=== PATIENT | female | born 1995 | race Caucasian/White ===

== ENCOUNTER → 2018-02-18 16:45 | Outpatient (CLI) | payer OTHER, SELFPAY ==
[2018-02-23 13:34] LABS: HPV Reflexed? NOT INDICATED
== END ==
PROVIDERS: Referring Provider Obstetrics & Gynecology; Visit Provider Obstetrics & Gynecology
DX: Z12.4 Encounter for screening for malignant neoplasm of cervix (principal)
CPT/HCPCS: 88175; G0145

== ENCOUNTER → 2020-05-09 | Outpatient (CLI) | payer OTHER, SELFPAY ==
[2020-05-12 20:51] LABS: HPV Reflexed? NOT INDICATED
== END | disposition home or self-care (01) ==
LOC: LABSPEC 16:29
PROVIDERS: Visit Provider Student in an Organized Health Care Education/Training Program
DX: Z12.4 Encounter for screening for malignant neoplasm of cervix (principal)
CPT/HCPCS: 88175; G0145

== ENCOUNTER → 2020-09-14 16:39 | Outpatient (CLI) | payer OTHER, SELFPAY ==
[2020-09-14 19:11] LABS: Estradiol 51.4 pg/mL; Follicle Stimulating Hormone 5.3 mIU/mL; Luteinizing Hormone 9.4 mIU/mL; Prolactin 8.3 ng/mL; T4 Free Direct 0.88 ng/dL (0.76-1.46); Thyroid Stim Hormone (TSH) 1.68 uIU/mL (0.358-3.74)
== END ==
PROVIDERS: Visit Provider Student in an Organized Health Care Education/Training Program
DX: N91.1 Secondary amenorrhea (principal)
CPT/HCPCS: 36415; 82670; 83001; 83002; 84146; 84439; 84443

== ENCOUNTER → 2021-10-30 | Outpatient (CLI) | payer OTHER, SELFPAY ==
[2021-10-30 14:35] LABS: Progesterone Level 0.32 ng/mL (See Comment)
== END | disposition home or self-care (01) ==
LOC: WOBLAB 11:57
PROVIDERS: Visit Provider Student in an Organized Health Care Education/Training Program
DX: N97.9 Female infertility, unspecified (principal)
CPT/HCPCS: 36415; 84144

== ENCOUNTER → 2021-12-03 | Outpatient (CLI) | payer OTHER, SELFPAY ==
[2021-12-03 11:53] LABS: Progesterone Level 0.33 ng/mL (See Comment)
== END | disposition home or self-care (01) ==
LOC: WOBLAB 10:42
PROVIDERS: Visit Provider Student in an Organized Health Care Education/Training Program
DX: N97.2 Female infertility of uterine origin (principal)
CPT/HCPCS: 36415; 84144

== ENCOUNTER → 2022-01-08 | Outpatient (CLI) | payer OTHER, SELFPAY ==
[2022-01-08 17:04] LABS: Progesterone Level 19.82 ng/mL (See Comment)
== END | disposition home or self-care (01) ==
LOC: WOBLAB 15:25
PROVIDERS: Visit Provider Student in an Organized Health Care Education/Training Program
DX: N97.9 Female infertility, unspecified (principal)
CPT/HCPCS: 36415; 84144

== ENCOUNTER → 2022-01-24 | Outpatient (CLI) | payer OTHER, SELFPAY ==
--- NOTE | 2022-01-24 11:55 | RAD_ITS ---
STUDY: HYSTEROSALPINGOGRAM. REASON FOR EXAM: Female, 26 years old. INFERTILITY FLUOROSCOPY TIME (if supplied): ( 18 seconds ) minutes/seconds. One image was obtained. TECHNIQUE: A hysterosalpingogram was performed by the telecasting technician. Imaging was obtained. COMPARISON: None. FINDINGS: The uterus is unremarkable. Both fallopian tubes are patent with free spill. RAD/Salpingogram IMPRESSION: Unremarkable hysterosalpingogram. Electronically Signed: Harshal Puentes MD at 12:38 EDT ,
== END | disposition home or self-care (01) ==
LOC: RAD 11:35
PROVIDERS: PCP Internal Medicine; Referring Provider Student in an Organized Health Care Education/Training Program; Visit Provider Student in an Organized Health Care Education/Training Program
DX: N97.9 Female infertility, unspecified (principal)
CPT/HCPCS: 58340; 74740; Q9967

== ENCOUNTER → 2022-02-07 | Outpatient (CLI) | payer OTHER, SELFPAY ==
[2022-02-07 16:21] LABS: Progesterone Level 16.86 ng/mL (See Comment)
== END | disposition home or self-care (01) ==
LOC: WOBLAB 15:07
PROVIDERS: PCP Internal Medicine; Visit Provider Student in an Organized Health Care Education/Training Program
DX: N97.9 Female infertility, unspecified (principal)
CPT/HCPCS: 36415; 84144

== ENCOUNTER → 2022-03-11 | Outpatient (CLI) | payer OTHER, SELFPAY ==
[2022-03-11 17:24] LABS: Progesterone Level 20.53 ng/mL (See Comment)
== END | disposition home or self-care (01) ==
LOC: WOBLAB 16:39
PROVIDERS: PCP Internal Medicine; Visit Provider Student in an Organized Health Care Education/Training Program
DX: N97.9 Female infertility, unspecified (principal)
CPT/HCPCS: 36415; 84144

== ENCOUNTER → 2022-04-01 | Outpatient (CLI) | payer OTHER, SELFPAY ==
[2022-04-01 18:31] LABS: hCG Titer Quant., Serum 10299 mIU/mL (1-3)
== END | disposition home or self-care (01) ==
LOC: WOBLAB 16:21
PROVIDERS: PCP Internal Medicine; Visit Provider Student in an Organized Health Care Education/Training Program
DX: N91.2 Amenorrhea, unspecified (principal)
CPT/HCPCS: 36415; 84702

== ENCOUNTER → 2022-04-16 | Outpatient (CLI) | payer OTHER, SELFPAY ==
[2022-04-16 16:18] LABS: Protein, Urine (Random) < 6.0 mg/dL (<11.9); Protein:Creat Ratio 268 mg/g CRE (0-200)
[2022-04-16 16:24] LABS: Absolute Lymphocyte Count 1.79 X10^3/uL (0.83-4.51); Absolute Neutrophil Count 7.6 X10^3/uL (2.0-7.7); Basophil# 0.03 X10^3/uL; Basophil% 0.3 % (0-1); Eosinophil# 0.07 X10^3/uL; Eosinophils% 0.7 % (0-5); Hemoglobin 13.5 g/dL (12.0-15.0); Lymphocyte # 1.79 X10^3/ul (0.83-4.51); Lymphocyte % 17.8 % (19-41); Mean Corp Hgb Conc 32.9 g/dL (32-36); Mean Corpuscular Hgb 26.5 pg (27.0-32.0); Mean Corpuscular Volume 80.4 fL (81-99); Mean Platelet Vol. 9.4 fl (6.2-12.0); Monocyte# 0.51 X10^3/uL; Monocyte% 5.1 % (0-10); NRBC Flagged by Analyzer 0 % (0-5); Neutrophil # 7.62 X10^3/uL (2.7-7.7); Neutrophil % 75.6 % (47-70); Platelet Count 385 K/mm3 (150-450); RBC Distribution Width CV 15.1 % (11.6-14.6); RBC Distribution Width SD 44.1 fl (35.1-43.9); White Blood Count 10.1 K/mm3 (4.4-11.0)
[2022-04-16 17:10] LABS: ALB/GLOB Ratio 0.9 RATIO (0.9-2.4); AST(SGOT) 29 U/L (15-37); Alanine Aminotransfer ALT/SGPT 45 U/L (13-56); Albumin, Serum 3.7 g/dL (3.2-5.0); Alkaline Phosphatase 119 U/L (45-117); Anion Gap 7 (5-15); BUN 8 mg/dL (7-18); BUN/Creat Ratio 12.3 RATIO (10-20); Calcium,Total 9.5 mg/dL (8.5-10.1); Chloride 104 mmol/L (98-107); Creatinine, Serum 0.65 mg/dL (0.55-1.02); EST Glomerular Filtration Rate 115 mL/min (>60); Est Glom Filt Rate - Afr Amer 139 mL/min (>60); Globulin 4.3 g/dL (2.2-4.2); Glucose 93 mg/dL (74-106); LDH 136 U/L (84-246); Potassium 3.3 mmol/L (3.5-5.1); Sodium Level 138 mmol/L (136-145)
[2022-04-16 17:50] LABS: HIV - WCH Non-Reactive (Nonreactive); Hepatitis B Surface Antigen Non-Reactive (Nonreactive); Hepatitis C Antibody Non-Reactive (Nonreactive); Rubella IgG Reactive (Nonreactive); Syphilis Antibodies Non-reactive
[2022-04-18 16:36] LABS: V-Zoster IgG (Immunity) 262 index (Immune >165)
[2022-04-19 05:07] LABS: Chlamydia By Nucleic Acid AMP Negative (Negative)
[2022-04-19 17:04] LABS: Gonococcus By Nucleic Acid AMP Negative (Negative)
== END | disposition home or self-care (01) ==
LOC: WOBLAB 15:40
PROVIDERS: PCP Internal Medicine; Visit Provider Student in an Organized Health Care Education/Training Program
DX: Z34.81 Encounter for supervision of other normal pregnancy, first trimester (principal); Z11.3 Encounter for screening for infections with a predominantly sexual mode of transmission; I10 Essential (primary) hypertension
CPT/HCPCS: 36415; 80053; 82570; 83615; 84156; 85025; 86703; 86762; 86780; 86787; 86803; 87086; 87088; 87340; 87491; 87591

== ENCOUNTER → 2022-05-15 | Outpatient (CLI) | payer OTHER, SELFPAY ==
[2022-05-15 10:57] LABS: Glucose Challenge Gest 1H 50g 113 mg/dL (70-140)
== END | disposition home or self-care (01) ==
PROVIDERS: PCP Internal Medicine; Visit Provider Student in an Organized Health Care Education/Training Program
DX: Z34.81 Encounter for supervision of other normal pregnancy, first trimester (principal)
CPT/HCPCS: 36415; 82950

== ENCOUNTER → 2022-05-21 | Outpatient (CLI) | payer OTHER, SELFPAY ==
--- NOTE | 2022-05-21 07:52 | EKG12_ITS ---
Test Reason : CHECK Blood Pressure : / mmHG Vent. Rate : 096 BPM Atrial Rate : 096 BPM P-R Int : 122 ms QRS Dur : 086 ms QT Int : 374 ms P-R-T Axes : -17 -07 016 degrees QTc Int : 472 ms Normal sinus rhythm Normal ECG Confirmed by WIN SALAS, JEAN ([id number]), editor school photograph MATEO BAUMAN ([id number]) on 05/23/2022 10:08:48 AM Referred By: JORGE Confirmed By:JEAN WALDEN MD
== END | disposition home or self-care (01) ==
PROVIDERS: PCP Internal Medicine; Visit Provider Obstetrics & Gynecology
DX: I10 Essential (primary) hypertension (principal)
CPT/HCPCS: 93005

== ENCOUNTER → 2022-08-07 | Outpatient (CLI) | payer OTHER, SELFPAY ==
[2022-08-07 09:58] LABS: Absolute Lymphocyte Count 1.18 X10^3/uL (0.83-4.51); Absolute Neutrophil Count 7.4 X10^3/uL (2.0-7.7); Basophil# 0.03 X10^3/uL; Basophil% 0.3 % (0-1); Eosinophil# 0.05 X10^3/uL; Eosinophils% 0.6 % (0-5); Hematocrit 36.8 % (37-47); Hemoglobin 11.9 g/dL (12.0-15.0); Lymphocyte # 1.18 X10^3/ul (0.83-4.51); Lymphocyte % 13.1 % (19-41); Mean Corp Hgb Conc 32.3 g/dL (32-36); Mean Corpuscular Volume 83.4 fL (81-99); Mean Platelet Vol. 9.8 fl (6.2-12.0); Monocyte% 3.3 % (0-10); NRBC Flagged by Analyzer 0 % (0-5); Neutrophil # 7.35 X10^3/uL (2.7-7.7); Neutrophil % 81.6 % (47-70); Platelet Count 369 K/mm3 (150-450); RBC Distribution Width SD 45.7 fl (35.1-43.9); Red Blood Count 4.41 M/mm3 (4.2-5.4)
[2022-08-07 10:16] LABS: Glucose Challenge Gest 1H 50g 164 mg/dL (70-140)
[2022-08-07 10:39] LABS: Syphilis Antibodies Non-reactive
== END | disposition home or self-care (01) ==
LOC: WOBLAB 09:10
PROVIDERS: PCP Internal Medicine; Visit Provider Student in an Organized Health Care Education/Training Program
DX: Z34.82 Encounter for supervision of other normal pregnancy, second trimester (principal)
CPT/HCPCS: 36415; 82950; 85025; 86780

== ENCOUNTER → 2022-08-12 | Outpatient (CLI) | payer OTHER, SELFPAY ==
[2022-08-12 09:42] LABS: Glucose GTT-Gestation. Fasting 117 mg/dL (<105)
[2022-08-12 10:31] LABS: Glucose GTT-Gestational 1 Hr 233 mg/dL (<190)
[2022-08-12 11:22] LABS: Glucose GTT-Gestational 2 Hr 172 mg/dL (<165)
[2022-08-12 13:29] LABS: Glucose GTT-Gestational 3 Hr 101 L (<145)
== END | disposition home or self-care (01) ==
LOC: WOBLAB 08:47
PROVIDERS: PCP Internal Medicine; Visit Provider Student in an Organized Health Care Education/Training Program
DX: Z34.82 Encounter for supervision of other normal pregnancy, second trimester (principal)
CPT/HCPCS: 36415; 82951; 82952

== ENCOUNTER → 2022-10-28 | Outpatient (CLI) | payer OTHER, SELFPAY ==
[2022-10-28 15:19] LABS: Hematocrit 41.5 % (37-47); Hemoglobin 13.7 g/dL (12.0-15.0); Mean Corpuscular Hgb 27.1 pg (27.0-32.0); Mean Corpuscular Volume 82.2 fL (81-99); Mean Platelet Vol. 10.8 fl (6.2-12.0); Platelet Count 347 K/mm3 (150-450); RBC Distribution Width CV 15.7 % (11.6-14.6); RBC Distribution Width SD 47.1 fl (35.1-43.9); Red Blood Count 5.05 M/mm3 (4.2-5.4); White Blood Count 8.9 K/mm3 (4.4-11.0)
== END | disposition home or self-care (01) ==
LOC: WOBLAB 14:50
PROVIDERS: PCP Internal Medicine; Visit Provider Student in an Organized Health Care Education/Training Program
DX: Z34.83 Encounter for supervision of other normal pregnancy, third trimester (principal)
CPT/HCPCS: 36415; 85027; 87081

== ENCOUNTER 2022-11-25 07:00 | Inpatient (IN) | payer OTHER, SELFPAY ==
[2022-11-25] VITALS (67 sets, daily range): BP systolic 97–187; BP diastolic 50–107; PULSE 73–180; RESP 16–18; TEMP 36.1–37; O2SAT 78–99; BMI 42.1
--- NOTE | 2022-11-25 07:25 | HP.PCM.OB_ITS ---
History and Physical Date of Admission: 11/25/22 HPI: 27-year-old G1, P0 at 40/0 weeks, LINDSEY 11/25/2022 by LMP, admitted for induction of labor at term for chronic hypertension and GDM A2. Denies regular contractions, leaking fluid, vaginal bleeding. Reports movement. Denies headache or vision changes, chest pain or shortness of breath, nausea or vomiting, diarrhea constipation, fevers or chills. 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: G1: Current Medical history: Class I obesity, chronic hypertension on meds Surgical history: Denies Family history: Noncontributory Social history: Denies tobacco, alcohol, drug use Allergies: Denies Medications: Vitamin, aspirin 81 mg, Levemir 20 units at night, labetalol 200 mg every 12h Review of system: Negative otherwise stated above Physical exam: Vitals pending General: No acute distress resting comfortably in bed HEENT: Normal cephalic/atraumatic Cardiorespiratory: No increased effort Abdomen: Soft, nontender, Gravid Extremities: Minimal edema Neurologic: Cranial nerves II through XII grossly intact, no focal deficits Musculoskeletal: Moves all extremities Cervical exam: Pending heart rate: Pending Assessment/plan: 27-year-old G1, P0 at 40/0 weeks, LINDSEY 11/25/2022 by LMP, admitted for induction of labor at term for chronic hypertension and GDM A2. complicated by: Gestational diabetes mellitus type A2, chronic hypertension on medications. ?Admit for induction of labor with Cytotec. AROM when appropriate. ? Continue labetalol. ? GBS negative. ? Blood sugar testing per protocol, hold Levemir and labor
[2022-11-25] MEDS: 0.9% Saline Lock 10 ML Syringe IV (07:45)
[2022-11-25 08:14] LABS: Absolute Lymphocyte Count 1.75 X10^3/uL (0.83-4.51); Absolute Neutrophil Count 7.2 X10^3/uL (2.0-7.7); Basophil# 0.03 X10^3/uL; Basophil% 0.3 % (0-1); Eosinophil# 0.08 X10^3/uL; Eosinophils% 0.8 % (0-5); Hematocrit 40.6 % (37-47); Hemoglobin 13.4 g/dL (12.0-15.0); Lymphocyte # 1.75 X10^3/ul (0.83-4.51); Lymphocyte % 18.2 % (19-41); Mean Corpuscular Hgb 27.5 pg (27.0-32.0); Mean Corpuscular Volume 83.2 fL (81-99); Mean Platelet Vol. 11.3 fl (6.2-12.0); Monocyte# 0.49 X10^3/uL; Monocyte% 5.1 % (0-10); NRBC Flagged by Analyzer 0 % (0-5); Neutrophil # 7.19 X10^3/uL (2.7-7.7); Neutrophil % 74.9 % (47-70); Platelet Count 346 K/mm3 (150-450); RBC Distribution Width CV 16.5 % (11.6-14.6); RBC Distribution Width SD 49.6 fl (35.1-43.9); Red Blood Count 4.88 M/mm3 (4.2-5.4); White Blood Count 9.6 K/mm3 (4.4-11.0)
[2022-11-25 09:23] LABS: Syphilis Antibodies Non-reactive
[2022-11-25] MEDS: miSOPROStol 25 MCG TABLET VAGINAL ×2 (09:44→14:00)
[2022-11-25 10:12] LABS: Bedside Glucose 106 mg/dL (74-106)
[2022-11-25 10:12] LABS: Bedside Glucose 103 mg/dL (74-106)
[2022-11-25] MEDS: Lactated Ringers 1,000 ML 50 ML IV (10:21)
[2022-11-25] MEDS: LACTATED RINGERS 500 ML 999 ML IV ×2 (10:21→18:51)
[2022-11-25 12:54] LABS: Bedside Glucose 93 mg/dL (74-106)
--- NOTE | 2022-11-25 14:57 | PCM.PN.OB ---
Subjective Subjective Patient doing well. No issues or concerns. No headaches or vision changes, right upper quadrant pain Objective Data Objective Data Vital Signs: Vital Signs Temp Pulse BP Pulse Ox 98.1 F 93 162/92 H 95 11/25/22 14:50 11/25/22 14:50 11/25/22 14:50 11/25/22 14:49 Weight: 101.2 kg Body Mass Index (BMI) 42.1 Intake & Output: Intake and Output for Last 24 Hours 11/23/22 11/24/22 11/25/22 23:59 23:59 23:59 Intake Total 500 / 500 Balance 500 / 500 Lab / Micro Data Attestation: I reviewed the patient's lab results. 11/25/22 07:45 Labs: Laboratory Results - last 24 hr 11/25/22 07:45: WBC 9.6, RBC 4.88, Hgb 13.4, Hct 40.6, MCV 83.2, MCH 27.5, MCHC 33.0, RDW Std Deviation 49.6 H, RDW Coeff of Tere 16.5 H, Plt Count 346, MPV 11.3, Immature Gran % (Auto) 0.700, Neut % (Auto) 74.9 H, Lymph % (Auto) 18.2 L, [place] % (Auto) 5.1, Eos % (Auto) 0.8, Baso % (Auto) 0.3, Absolute Neuts (auto) 7.2, Absolute Lymphs (auto) 1.75, Nucleated RBC % 0, Syphilis Total Ab Non-reactive, Blood Type O POSITIVE, Antibody Screen NEGATIVE 11/25/22 08:27: POC Glucose 106 11/25/22 09:30: POC Glucose 103 11/25/22 12:34: POC Glucose 93 Physical Exam Const alert, oriented x3 and no apparent distress Resp normal respiratory effort GI soft to palpation and non-tender Inspection: gravid Extremity no pedal edema Neuro no focal motor deficits and no sensory deficits noted NST FHR Rate Baby A Baseline: 135 Variability:: Moderate Accelerations:: 15 x 15 Decelerations:: None FHR Category:: Category I Uterine Activity:: irregular Assessment & Plan (1) Gestational diabetes: PLAN: 27-year-old G1 at 40/0 weeks admitted for induction of labor for chronic hypertension on medications and GDM A2. Continue induction of labor with Cytotec. Patient one-time severe range blood pressure. Will give dose of labetalol at 5 PM tonight. Repeat blood pressure in 15 minutes. Reviewed possible treatment plan if blood pressures were persistently in the severe range. (2) Chronic hypertension:
[2022-11-25] MEDS: Labetalol (Prefilled) 20 MG/4 ML IV (15:25)
[2022-11-25] MEDS: Magnesium Sulfate 4gm/100mL 4 GM/100 ML IV.SOLN. IV (15:34)
[2022-11-25] MEDS: Magnesium Sulfate 4gm/100mL 2 GM/50 ML IV.SOLN. IV (15:52)
[2022-11-25] MEDS: Labetalol (Prefilled) 20 MG/4 ML 40 MG IV (16:06)
[2022-11-25] MEDS: Magnesium Sulfate 20 GM/500 ML BAG IV (16:13)
[2022-11-25 16:48] LABS: ALB/GLOB Ratio 0.5 RATIO (0.9-2.4); AST(SGOT) 26 U/L (15-37); Alanine Aminotransfer ALT/SGPT 44 U/L (13-56); Albumin, Serum 2.4 g/dL (3.2-5.0); Alkaline Phosphatase 245 U/L (45-117); Anion Gap 8 (5-15); BUN 12 mg/dL (7-18); BUN/Creat Ratio 22.9 RATIO (10-20); Calcium,Total 9.3 mg/dL (8.5-10.1); Chloride 106 mmol/L (98-107); Creatinine, Serum 0.52 mg/dL (0.55-1.02); EST Glomerular Filtration Rate 147 mL/min (>60); Est Glom Filt Rate - Afr Amer 177 mL/min (>60); Estimated Creatinine Clearance 120.46 ml/min; Globulin 4.6 g/dL (2.2-4.2); Glucose 89 mg/dL (74-106); Potassium 4.2 mmol/L (3.5-5.1); Sodium Level 135 mmol/L (136-145)
[2022-11-25 16:50] LABS: LDH 143 U/L (84-246)
[2022-11-25] MEDS: Labetalol 200 MG Tablet 300 MG PO (17:01)
[2022-11-25 17:12] LABS: Bedside Glucose 85 mg/dL (74-106)
[2022-11-25 18:11] LABS: Protein, Urine (Random) 134.7 mg/dL (<11.9); Protein:Creat Ratio 8980 mg/g CRE (0-200)
[2022-11-25] MEDS: Sodium Citrate/Citric Acid 30 ML UDC PO (20:06)
[2022-11-25] MEDS: Acetaminophen 500 MG Tablet PO (20:06)
[2022-11-25] MEDS: Cefazolin 2 GM in 0.9% Normal Saline 100 ML IV (20:15)
[2022-11-25 20:40] LABS: Bedside Glucose 115 mg/dL (74-106)
--- NOTE | 2022-11-25 21:29 | OP.PCM_ITS ---
Maternal Data Information Final LINDSEY: 11/25/22 Details Operative Information Date of Procedure: 11/25/22 Pre-Operative Diagnosis: Gould intrauterine , nonreassuring heart tones, chronic hypertension, gestational diabetes mellitus type A2 Post-Operative Diagnosis: Gould intrauterine , nonreassuring heart tones, chronic hypertension, gestational diabetes mellitus type A2 Indications Narrative: 27-year-old G1, P0 at 40/0 weeks admitted for induction of labor for chronic hypertension and GDM A2. Patient was diagnosed with superimposed preeclampsia with severe features during labor based on severe range blood pressures. She progressed through labor, had spontaneous rupture of membranes of meconium fluid. Developed nonreassuring heart tones, unresolved with supportive measures. Decision for section at that time was made. All risk, benefits, alternatives were discussed with the patient. Risk include but are not limited to: Risk of bleeding to the point of transfusion, infection, injury to surrounding tissue including bowel/bladder potentially requiring prolonged Stephenson catheter use, VTE, ICU admission. Patient aware and consented. Proceeding in an urgent, nonemergent fashion. Classification: MICHAEL Procedure Type: low transverse hose maker #1: Sheila Rose Type of Anesthesia: Spinal Antibiotic Given: Ancef 2 grams IV x1 and Zithromax 500 mg/5 mL X1 Estimated Blood Loss: 800cc Fluids Replaced: 1100cc IVF Findings Description of Procedure: Patient taken to the operating room and spinal anesthesia placed. Patient placed in the supine position with a left lateral tilt. Prepped and draped in the usual sterile fashion. Pfannenstiel skin incision made with scalpel and carried through subcutaneous tissue. Fascia nicked on either side of midline and extended bilaterally using Acosta scissors. Swati clamps placed at the superior fascial edge which was tented up and underlying rectus muscles were dissected off bluntly and sharply at midline using Bovie. Swati clamps moved to the inferior fascial edge which was tented up and underlying rectus muscles dissected off bluntly and sharply at midline using Acosta scissors. Small rectus muscle arteries coagulated with Bovie. Rectus muscles superiorly with hemostat and hemostat grasped peritoneum. Peritoneum entered bluntly. Extended bluntly. Bladder blade placed. Low transverse uterine incision made with scalpel and extended bluntly. The head noted to be in a occiput posterior position level in the pelvis. Attempted to elevate head to the level of the hysterotomy. Due to station being low and head position, a hand from below was needed to elevate the head. head elevated and head delivered followed by body. No nuchal cord. Cord clamped and cut immediately. Baby handed to nursing. Manual extraction of placenta. Uterus exteriorized and cleared of all clots. Hysterotomy closed with a running stitch followed by a second vertical imbricating stitch. Hemostatic. Placed into the abdominal cavity. Peritoneum reapproximated with suture. Oozing noted on the rectus muscles, hemostatic with Bovie and a [id number] stitch on the lateral aspect of the right rectus muscle. Brisa placed along the rectus muscles. Fascia closed with running stitch. Subcutaneous tissue irrigated. Subcutaneous tissue reapproximated with suture in 2 layers. Skin closed with a running subcuticular stitch. At the end of procedure all needle, lap, sponge counts were correct. Urine output: 50 cc clear urine, patient had just voided prior to surgery Plan for 24 hours of magnesium sulfate to continue. CBC, CMP, magnesium level in the morning. Continue Ancef 2 g every 8 hours for 24 hours prophylactically due to hand from below. Technology Development Intern did not feel the need for blood gases. Cord Entanglement: None Infant A Gender: Male (1 minute): 2 (5 minute): 9 Delayed Cord Clamping: No Complications Complications: None
[2022-11-25] MEDS: Oxytocin 15 Units/NS 250ml 15 UNITS/250 ML IV.SOLN 83 UNITS IV (21:45)
[2022-11-25] MEDS: Ketorolac 30 MG/ML Syringe IV (22:04)
[2022-11-26] VITALS (24 sets, daily range): BP systolic 88–140; BP diastolic 47–79; PULSE 97–116; RESP 15–18; TEMP 36.1–36.8; O2SAT 95–99
[2022-11-26] MEDS: Lactated Ringers 1,000 ML 50 ML IV (01:00)
[2022-11-26] MEDS: Magnesium Sulfate 20 GM/500 ML BAG IV ×2 (01:49→16:03)
[2022-11-26] MEDS: Acetaminophen 500 MG Tablet 1000 MG PO ×4 (02:26→22:03)
--- NOTE | 2022-11-26 03:40 | NURSING ---
Pt c/o feeling light headed and dizzy. Pt reports that she is hungry and has not went this long since having food before. Pt reports that she cannot tell when her blood sugar is low or high. Blood sugar taken at this time and it was 111. Pt requesting to eat at this time.
[2022-11-26 04:11] LABS: Bedside Glucose 111 mg/dL (74-106)
[2022-11-26] MEDS: Cefazolin 2 GM in 0.9% Normal Saline 100 ML IV ×3 (04:13→20:02)
[2022-11-26] MEDS: Ketorolac 30 MG/ML Syringe IV ×3 (04:14→16:09)
--- NOTE | 2022-11-26 04:50 | NURSING ---
Pt reports feeling better and not light headed or dizzy after eating a sandwich. This RN and another RN assisted pt to sit on the side of the bed. When pt sat on side of bed, pt reports feeling dizzy and light headed and requesting to get back into bed.
[2022-11-26 05:39] LABS: Hematocrit 27.9 % (37-47); Hemoglobin 8.9 g/dL (12.0-15.0); Mean Corp Hgb Conc 31.9 g/dL (32-36); Mean Corpuscular Hgb 27.2 pg (27.0-32.0); Mean Corpuscular Volume 85.3 fL (81-99); Platelet Count 368 K/mm3 (150-450); RBC Distribution Width SD 52.3 fl (35.1-43.9); Red Blood Count 3.27 M/mm3 (4.2-5.4); White Blood Count 16.7 K/mm3 (4.4-11.0)
--- NOTE | 2022-11-26 06:24 | CPS ---
Pt taught by SILVIA scales.
[2022-11-26 06:40] LABS: ALB/GLOB Ratio 0.5 RATIO (0.9-2.4); AST(SGOT) 32 U/L (15-37); Alanine Aminotransfer ALT/SGPT 39 U/L (13-56); Albumin, Serum 1.8 g/dL (3.2-5.0); Alkaline Phosphatase 188 U/L (45-117); Anion Gap 9 (5-15); BUN 19 mg/dL (7-18); BUN/Creat Ratio 23.9 RATIO (10-20); Calcium,Total 7.5 mg/dL (8.5-10.1); Chloride 106 mmol/L (98-107); Creatinine, Serum 0.79 mg/dL (0.55-1.02); EST Glomerular Filtration Rate 91 mL/min (>60); Est Glom Filt Rate - Afr Amer 110 mL/min (>60); Estimated Creatinine Clearance 79.29 ml/min; Globulin 3.4 g/dL (2.2-4.2); Glucose 111 mg/dL (74-106); Magnesium 7.4 mg/dL (1.6-2.6); Potassium 4.6 mmol/L (3.5-5.1); Protein, Total 5.2 g/dL (6.4-8.2); Sodium Level 135 mmol/L (136-145)
[2022-11-26] MEDS: LACTATED RINGERS 500 ML 999 ML IV (07:00)
--- NOTE | 2022-11-26 08:18 | PCM.PN.OB ---
Subjective Subjective Lochia minimal. Pain controlled. Feeling some lightheadedness. Denies headache or vision changes, right upper quadrant pain, chest pain or shortness of breath. Objective Data Objective Data Vital Signs: Vital Signs Temp Pulse Resp BP Pulse Ox O2 Del Method O2 Flow Rate 97.8 F 108 H 16 111/67 95 Room Air 10 11/26/22 07:04 11/26/22 07:04 11/26/22 07:04 11/26/22 07:04 11/26/22 07:04 11/26/22 07:04 11/25/22 19:45 Oxygen Flow Rate (L/min) 10 Oxygen Delivery Method Room Air Weight: 101.2 kg Body Mass Index (BMI) 42.1 Intake & Output: Intake and Output for Last 24 Hours 11/24/22 11/25/22 11/26/22 23:59 23:59 23:59 Intake Total 1963.58 / 1988.58 1474.17 / 1474.17 Output Total 1525 / 1570 1170 / 1170 Balance 438.58 / 418.58 304.17 / 304.17 Lab / Micro Data Attestation: I reviewed the patient's lab results. 11/26/22 05:30 11/26/22 05:30 Labs: Laboratory Results - last 24 hr 11/25/22 07:45: Syphilis Total Ab Non-reactive, Blood Type O POSITIVE, Antibody Screen NEGATIVE 11/25/22 08:27: POC Glucose 106 11/25/22 09:30: POC Glucose 103 11/25/22 12:34: POC Glucose 93 11/25/22 15:50: Sodium 135 L, Potassium 4.2, Chloride 106, Carbon Dioxide 21.0, Anion Gap 8, BUN 12, Creatinine 0.52 L, Estim Creat Clear Calc 120.46, Est GFR (MDRD) Af Amer 177, Est GFR (MDRD) Non-Af 147, BUN/Creatinine Ratio 22.9 H, Glucose 89, Calcium 9.3, Total Bilirubin 0.30, AST 26, ALT 44, Alkaline Phosphatase 245 H, Lactate Dehydrogenase 143, Total Protein 7.0, Albumin 2.4 L, Globulin 4.6 H, Albumin/Globulin Ratio 0.5 L 11/25/22 16:36: POC Glucose 85 11/25/22 17:10: U Random Total Protein 134.7 H, Urine Creatinine 15.00, Protein/Creatinin Ratio 8980 H 11/25/22 19:35: Magnesium 5.0 H 11/25/22 19:53: POC Glucose 115 H 11/26/22 03:48: POC Glucose 111 H 11/26/22 05:30: WBC 16.7 H, RBC 3.27 L, Hgb 8.9 L, Hct 27.9 L, MCV 85.3, MCH 27.2, MCHC 31.9 L, RDW Std Deviation 52.3 H, RDW Coeff of Tere 17.0 H, Plt Count 368, MPV 11.0, Sodium 135 L, Potassium 4.6, Chloride 106, Carbon Dioxide 20.0 L, Anion Gap 9, BUN 19 H, Creatinine 0.79, Estim Creat Clear Calc 79.29, Est GFR (MDRD) Af Amer 110, Est GFR (MDRD) Non-Af 91, BUN/Creatinine Ratio 23.9 H, Glucose 111 H, Calcium 7.5 L, Magnesium 7.4 H*, Total Bilirubin 0.30, AST 32, ALT 39, Alkaline Phosphatase 188 H, Total Protein 5.2 L, Albumin 1.8 L, Globulin 3.4, Albumin/Globulin Ratio 0.5 L Physical Exam Const alert, oriented x3 and no apparent distress HEENT normocephalic Head and Scalp: atraumatic Neck full ROM Resp normal respiratory effort Cardio regular rate GI normal to inspection, nondistended, normoactive bowel sounds GI Narrative: Uterus 2 cm below umbilicus, dressing clean and dry Back/Spine normal ROM Extremity normal to inspection Extremity Narrative: Minimal pedal edema Neuro no focal motor deficits and no sensory deficits noted Psych mental status grossly normal and affect normal Assessment & Plan (1) Chronic hypertension with superimposed pre-eclampsia: PLAN: Postop day 1 status post primary section for nonreassuring heart tones. Complicated by: GDMA2, superimposed preeclampsia with severe features, acute blood loss anemia secondary to surgery. ?GDMA2: Nonfasting blood sugar this morning within normal limits, will repeat tomorrow. Will need 2-hour glucose tolerance test 6 to 12 weeks . ? Acute blood loss anemia secondary to surgery. Will repeat CBC tomorrow, iron supplement on home-going. ?Superimposed preeclampsia with severe features. Magnesium level 7.4 this morning, magnesium drip decreased to 1 g/h. With a plan to repeat magnesium level 4 hours from last draw. Mag to be continued until this evening at 2039. Blood pressure is well-controlled at this time, lower end of normal. Patient having some lightheadedness and dizziness likely secondary to magnesium and blood pressures being lower. Will continue to hold her home labetalol dose of 300 mg twice daily. Patient also received 500 cc LR bolus this morning. Discharge plan: Likely discharge home postop day 3. Plan of care reviewed with bedside RN, patient, partner. All questions answered. (2) Other acute postprocedural pain: (3) Gestational diabetes:
[2022-11-26] MEDS: Senna/Docusate Sodium 1 Tablet PO (09:35)
[2022-11-26] MEDS: Enoxaparin 40 MG/0.4 ML Syringe SC ×2 (09:35→20:47)
[2022-11-26 09:58] LABS: Magnesium 6.8 mg/dL (1.6-2.6)
[2022-11-26 17:24] LABS: Magnesium 5.8 mg/dL (1.6-2.6)
[2022-11-26] MEDS: Labetalol 200 MG Tablet PO (20:47)
[2022-11-26] MEDS: Ibuprofen 600 MG Tablet PO (22:03)
[2022-11-26 23:50] LABS: Hematocrit 19.1 % (37-47); Hemoglobin 6.4 g/dL (12.0-15.0); Mean Corp Hgb Conc 33.5 g/dL (32-36); Mean Corpuscular Hgb 28.4 pg (27.0-32.0); Mean Corpuscular Volume 84.9 fL (81-99); Mean Platelet Vol. 10.7 fl (6.2-12.0); Platelet Count 294 K/mm3 (150-450); RBC Distribution Width CV 17.2 % (11.6-14.6); RBC Distribution Width SD 53.4 fl (35.1-43.9); Red Blood Count 2.25 M/mm3 (4.2-5.4); White Blood Count 10.5 K/mm3 (4.4-11.0)
[2022-11-27] VITALS (11 sets, daily range): BP systolic 118–152; BP diastolic 56–76; PULSE 88–113; RESP 14–21; TEMP 36.1–37.2; O2SAT 94–97
[2022-11-27 00:20] LABS: ALB/GLOB Ratio 0.5 RATIO (0.9-2.4); AST(SGOT) 28 U/L (15-37); Alanine Aminotransfer ALT/SGPT 28 U/L (13-56); Albumin, Serum 1.9 g/dL (3.2-5.0); Alkaline Phosphatase 192 U/L (45-117); Anion Gap 10 (5-15); BUN 27 mg/dL (7-18); BUN/Creat Ratio 27.9 RATIO (10-20); Chloride 100 mmol/L (98-107); Creatinine, Serum 0.97 mg/dL (0.55-1.02); EST Glomerular Filtration Rate 72 mL/min (>60); Est Glom Filt Rate - Afr Amer 87 mL/min (>60); Estimated Creatinine Clearance 64.58 ml/min; Globulin 3.6 g/dL (2.2-4.2); Glucose 150 mg/dL (74-106); Potassium 4.4 mmol/L (3.5-5.1); Protein, Total 5.5 g/dL (6.4-8.2); Sodium Level 130 mmol/L (136-145)
[2022-11-27] MEDS: Acetaminophen 500 MG Tablet 1000 MG PO ×4 (04:10→22:11)
[2022-11-27] MEDS: Ibuprofen 600 MG Tablet PO ×4 (04:10→22:11)
[2022-11-27] MEDS: oxyCODONE 5 MG Tablet PO ×2 (05:17→11:51)
--- NOTE | 2022-11-27 06:40 | PN.OBGYN_ITS ---
Subjective Subjective Patient up to chair. Feeling better than yesterday. Denies any current dizziness. Desires getting up out of bed. Lochia minimal. Pain controlled. No headache or vision changes. Objective Data Objective Data Vital Signs: Vital Signs Temp Pulse Resp BP Pulse Ox O2 Del Method O2 Flow Rate 97.0 F L 88 16 125/66 H 95 Room Air 10 11/27/22 06:20 11/27/22 06:20 11/27/22 06:20 11/27/22 06:20 11/27/22 06:20 11/27/22 06:20 11/25/22 19:45 Oxygen Flow Rate (L/min) 10 Oxygen Delivery Method Room Air Weight: 101.2 kg Body Mass Index (BMI) 42.1 Intake & Output: Intake and Output for Last 24 Hours 11/25/22 11/26/22 11/27/22 23:59 23:59 23:59 Intake Total 1963.58 / 1988.58 4544.17 / 4544.17 800 / 800 Output Total 1525 / 1570 1840 / 1840 2550 / 2550 Balance 438.58 / 418.58 2704.17 / 2704.17 -1750 / -1750 Lab / Micro Data Attestation: I reviewed the patient's lab results. 11/26/22 23:40 11/26/22 23:40 Labs: Laboratory Results - last 24 hr 11/25/22 07:45: Crossmatch See Detail 11/26/22 05:30: Sodium 135 L, Potassium 4.6, Chloride 106, Carbon Dioxide 20.0 L , Anion Gap 9, BUN 19 H, Creatinine 0.79, Estim Creat Clear Calc 79.29, Est GFR (MDRD) Af Amer 110, Est GFR (MDRD) Non-Af 91, BUN/Creatinine Ratio 23.9 H, Glucose 111 H, Calcium 7.5 L, Magnesium 7.4 H*, Total Bilirubin 0.30, AST 32, ALT 39, Alkaline Phosphatase 188 H, Total Protein 5.2 L, Albumin 1.8 L, Globulin 3.4, Albumin/Globulin Ratio 0.5 L 11/26/22 09:00: Magnesium 6.8 H* 11/26/22 16:10: Magnesium 5.8 H* 11/26/22 23:40: WBC 10.5, RBC 2.25 L, Hgb 6.4 L, Hct 19.1 L, MCV 84.9, MCH 28.4, MCHC 33.5 D, RDW Std Deviation 53.4 H, RDW Coeff of Tere 17.2 H, Plt Count 294, MPV 10.7, Sodium 130 L, Potassium 4.4, Chloride 100, Carbon Dioxide 20.0 L, Anion Gap 10, BUN 27 H, Creatinine 0.97, Estim Creat Clear Calc 64.58, Est GFR (MDRD) Af Amer 87, Est GFR (MDRD) Non-Af 72, BUN/Creatinine Ratio 27.9 H, Glucose 150 H, Calcium 7.0 L, Total Bilirubin 0.20, AST 28, ALT 28, Alkaline Phosphatase 192 H, Total Protein 5.5 L, Albumin 1.9 L, Globulin 3.6, Albumin/Globulin Ratio 0.5 L Physical Exam Const alert, oriented x3 and no apparent distress HEENT normocephalic Head and Scalp: atraumatic Neck full ROM Resp normal respiratory effort Cardio regular rate GI normal to inspection, nondistended, normoactive bowel sounds GI Narrative: Uterus 2 cm below umbilicus, dressing clean and dry Back/Spine normal ROM Extremity normal to inspection Extremity Narrative: Minimal pedal edema Neuro no focal motor deficits and no sensory deficits noted Psych mental status grossly normal and affect normal Assessment & Plan (1) Chronic hypertension with superimposed pre-eclampsia: PLAN: Postop day 2 status post primary section for nonreassuring heart tones. Complicated by GDMA2, superimposed preeclampsia with severe features, acute blood loss anemia. ?GDMA2: Fasting within normal limits. ? Alberto with severe features: Status post magnesium sulfate for 24 hours. Blood pressure is well-controlled. Blood pressure became slightly higher with a lower magnesium rate, patient was given labetalol 200 mg last evening. Will continue to monitor. Has labetalol ordered 200 mg every 12 hours. Labs tomorrow ?Acute blood loss anemia secondary to surgery. CBC done last evening with a hemoglobin of 6.4. Patient received 2 units of PRBCs. She has a CBC pending for around noon today. May need additional blood products. Patient's abdomen is soft and minimally tender, lochia has been minimal. No signs of continued bleeding at this time. Labs to be repeated tomorrow morning as well. Discharge planning: Patient to be discharged home on Lovenox 40 mg twice daily, at this time plan for home-going tomorrow postop day 3. Will depend on need for additional blood products and blood pressure management. (2) Other acute postprocedural pain: (3) Gestational diabetes:
[2022-11-27] MEDS: Senna/Docusate Sodium 1 Tablet PO (09:53)
[2022-11-27] MEDS: Enoxaparin 40 MG/0.4 ML Syringe SC ×2 (09:53→21:07)
[2022-11-27] MEDS: Labetalol 200 MG Tablet PO (09:53)
[2022-11-27 12:18] LABS: Absolute Lymphocyte Count 1.32 X10^3/uL (0.83-4.51); Absolute Neutrophil Count 8.7 X10^3/uL (2.0-7.7); Basophil# 0.02 X10^3/uL; Basophil% 0.2 % (0-1); Eosinophil# 0.04 X10^3/uL; Eosinophils% 0.4 % (0-5); Hematocrit 22.6 % (37-47); Lymphocyte # 1.32 X10^3/ul (0.83-4.51); Lymphocyte % 12.1 % (19-41); Mean Corp Hgb Conc 35.4 g/dL (32-36); Mean Corpuscular Hgb 29.4 pg (27.0-32.0); Mean Corpuscular Volume 83.1 fL (81-99); Monocyte# 0.61 X10^3/uL; Monocyte% 5.6 % (0-10); NRBC Flagged by Analyzer 0 % (0-5); Neutrophil # 8.66 X10^3/uL (2.7-7.7); Neutrophil % 79.7 % (47-70); Platelet Count 289 K/mm3 (150-450); RBC Distribution Width CV 16.6 % (11.6-14.6); RBC Distribution Width SD 49.7 fl (35.1-43.9); Red Blood Count 2.72 M/mm3 (4.2-5.4); White Blood Count 10.9 K/mm3 (4.4-11.0)
--- NOTE | 2022-11-27 12:20 | CT_ITS ---
STUDY: CTA CHEST REASON FOR EXAM: Female, 27 years old. Rule out pe and sob RADIATION DOSAGE (If Supplied By Facility): CTDIvol = ( 12.96 ) mGy, DLP = ( 362.10 ) mGycm TECHNIQUE: The examination was performed with the intravenous administration of IV 100mL Isovue-370. Post-processing of the angiographic images was performed, with multiplanar reformation and 3D reconstruction. Individualized dose optimization techniques were used for this CT. COMPARISON: None. FINDINGS: Normal enhancement of the main pulmonary artery and right and left pulmonary arteries. Normal enhancement of the bilateral peripheral pulmonary arteries. There is no demonstrated pulmonary embolism. Normal thoracic aorta and visualized great vessels. There is no demonstrated aortic dissection. Normal heart and pericardium. Normal mediastinum. Normal hilar regions. Normal visualized trachea and bronchi. The lungs are well expanded. Mild degree of increased markings in the posterior aspect of the superior segment of the right lower lobe. This may represent an early infiltrate. Mild degree of increased markings at both lung bases suggestive of atelectasis. Normal pleura. Normal chest wall structures. Normal osseous structures. Normal visualized upper abdomen. CT/CTA Chest W/WO Contrast IMPRESSION: Normal CTA chest examination, without a demonstrated pulmonary embolism or arterial dissection. Findings she has a focal infiltrate in the posterior aspect of the superior segment of the right lower lobe. Bibasilar atelectasis. Electronically Signed: Harshal Puentes MD at 13:26 EDT ,
[2022-11-27] MEDS: SimETHICONE 80 MG Chewable Tablet PO (13:21)
--- NOTE | 2022-11-27 14:26 | CASEMGMT ---
Social Work Labor and Delivery Unit ? Summary:?Sw informed by nursing staff that mother of baby (ROBI Modi) had what looked like adoption papers at bedside. Sw completed chart review, no official social work consult submitted at this time. Sw agreed to meet with MOB at bedside to assess for any issues or concerns. - Sw presented to bedside, introduced self to MOB and explained sw role in [facility]. - MOB states that she and father of baby have been together for 6 years, this is their first baby together. - MOB reports that they have everything they need for baby at home including: car seat, safe sleep space, clothes, diapers, wipes and breast pump. - MOB states that they have a lot of support found in both sides of grandparents who are eager to babysit baby, Mg. 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 MOB states that FOIsabella works from home and will be home with her during this period to help her. - MOB reports that she feels like she is bonding with baby and did not have any concerns about caring for . - MOB denies mental health diagnoses for herself and FOB. MOB states that she is aware of signs and symptoms of baby blues and depression to be on the look out for now that baby has been born. - Sw educated MOB on ABCs of safe sleep, MOB expressed understanding. - Sw assessed for any needs or concerns, to which MOB denied. ? Assessment:??MOB was laying in bed while sw met with her briefly. MOB smiled and obtained good eye contact. MOB answered questions asked and did not have any questions or concerns. MOB was receptive to sw involvement and support. MOB did not indicate any plans or intentions of utilizing adoption for baby. ? Intervention:?Support, education, acitve listening ? Plan:??MOB and baby will be discharged together when medically ready. ? No other services requested or indicated. Amara Juarez, POURED WALL FOREMAN, MEDICAL DEVICE
[2022-11-27] MEDS: 0.9% Saline Lock 10 ML Syringe IV (17:13)
[2022-11-27] MEDS: Labetalol 200 MG Tablet 300 MG PO (22:11)
[2022-11-28 01:20] VITALS: BP 121/49; PULSE 100; RESP 20; TEMP 36.8; O2SAT 94
--- NOTE | 2022-11-28 02:15 | NURSING ---
report given to Jeffrey Manley RN who is assuming care of pt at this time
[2022-11-28] MEDS: Ibuprofen 600 MG Tablet PO ×2 (04:25→10:05)
[2022-11-28] MEDS: Acetaminophen 500 MG Tablet 1000 MG PO ×2 (04:26→10:04)
[2022-11-28] MEDS: 0.9% Saline Lock 10 ML Syringe IV ×2 (04:26→10:06)
[2022-11-28 04:44] LABS: Absolute Neutrophil Count 8.9 X10^3/uL (2.0-7.7); Basophil# 0.05 X10^3/uL; Basophil% 0.4 % (0-1); Eosinophil# 0.09 X10^3/uL; Eosinophils% 0.7 % (0-5); Hematocrit 23.7 % (37-47); Hemoglobin 7.8 g/dL (12.0-15.0); Lymphocyte % 15.8 % (19-41); Mean Corp Hgb Conc 32.9 g/dL (32-36); Mean Corpuscular Hgb 28.7 pg (27.0-32.0); Mean Corpuscular Volume 87.1 fL (81-99); Mean Platelet Vol. 10.1 fl (6.2-12.0); Monocyte# 0.57 X10^3/uL; Monocyte% 4.7 % (0-10); NRBC Flagged by Analyzer 0.2 % (0-5); Neutrophil # 8.93 X10^3/uL (2.7-7.7); Neutrophil % 74.3 % (47-70); Platelet Count 280 K/mm3 (150-450); RBC Distribution Width CV 17.2 % (11.6-14.6); RBC Distribution Width SD 53.8 fl (35.1-43.9); Red Blood Count 2.72 M/mm3 (4.2-5.4)
[2022-11-28 05:06] LABS: ALB/GLOB Ratio 0.4 RATIO (0.9-2.4); AST(SGOT) 27 U/L (15-37); Alanine Aminotransfer ALT/SGPT 25 U/L (13-56); Alkaline Phosphatase 219 U/L (45-117); Anion Gap 10 (5-15); BUN 22 mg/dL (7-18); BUN/Creat Ratio 31.8 RATIO (10-20); Calcium,Total 8.4 mg/dL (8.5-10.1); Chloride 107 mmol/L (98-107); Creatinine, Serum 0.69 mg/dL (0.55-1.02); EST Glomerular Filtration Rate 106 mL/min (>60); Est Glom Filt Rate - Afr Amer 129 mL/min (>60); Estimated Creatinine Clearance 90.78 ml/min; Globulin 4.5 g/dL (2.2-4.2); Glucose 119 mg/dL (74-106); Protein, Total 6.5 g/dL (6.4-8.2); Sodium Level 139 mmol/L (136-145)
--- NOTE | 2022-11-28 08:20 | PCM.DC.BLA ---
Discharge Summary Date of Admission: 11/25/22 Date of Discharge: 11/28/22 Summary: Patient arrived on 11/25/2022 for induction of labor with chronic hypertension. Subsequently diagnosed with Alberto with severe features based on severe range blood pressures given IV labetalol on 11/25. Continued on p.o. labetalol throughout her stay. Nonreassuring heart tones occurred and primary section occurred on 11/25/2022. Magnesium was continued . Blood pressure medication increased to labetalol 300 mg twice daily. Patient found to have acute blood loss anemia transfused units of packed red blood cells on 11/27. And given Venofer 11/28. Patient was subsequent chest pain on 11/27/2022 CT angio negative for pulmonary embolism and EKG with no signs of AK. Chest pain resolved on 11/27/2022. Patient discharged home on 11/28/2022 on Lovenox 40 mg twice daily. Meaningful Use Info Meaningful Use Diagnoses (Choose all that apply): None applicable Discharge Plan Admission Admit Date/Time: 11/25/22 07:00 Primary Reason for Your Visit: section Attending Provider: Ailyn Grigsby Primary Care Provider: Lauren Latham Instructions Additional Instructions / Restrictions: Regular diet. Okay to shower. No tub baths for 2 weeks. No intercourse for 8 weeks. No lifting over 25 pounds for 3 weeks. Call if fevers, chills, chest pain, shortness of breath. Follow-up 1 week for blood pressure check Discharge Orders/Prescriptions Prescriptions: New enoxaparin [Lovenox] 40 mg/0.4 mL syringe 40 mg subcut Q12H 14 Days Qty: 11.2 0RF Rx Instructions: 40 mg subcutaneous every 12 hours oxycodone 5 mg tablet 5 mg PO Q6H PRN (Reason: pain (scale score 7-10)) 4 Days Qty: 14 0RF Discontinued aspirin 81 mg tablet,delayed release (DR/EC) Patient Comments: 1 TAB ONCE DAILY STARTING AT 12 WEEKS. Levemir FlexPen 100 unit/mL (3 mL) insulin pen SUBCUT Patient Comments: INJECT 20UNITS SUBCUTANEOUSLY AT BEDTIME No Action labetalol 300 mg tablet Patient Comments: TAKE 1 TABLET BY MOUTH TWICE A DAY Referrals / Follow Up: Lauren Latham MD [Primary Care Provider] - Disposition Disposition (needs filled in before D/C Order can be placed): Home, Self Care
--- NOTE | 2022-11-28 08:22 | PN.OBGYN_ITS ---
Subjective Subjective No overnight complaints. Denies chest pain, shortness of breath, nausea vomit, right upper quadrant pain. Objective Data Objective Data Vital Signs: Vital Signs Temp Pulse Resp BP Pulse Ox O2 Del Method O2 Flow Rate 98.3 F 100 20 H 121/49 H 94 Room Air 10 11/28/22 01:20 11/28/22 01:20 11/28/22 01:20 11/28/22 01:20 11/28/22 01:20 11/28/22 01:20 11/25/22 19:45 Oxygen Flow Rate (L/min) 10 Oxygen Delivery Method Room Air Weight: 223 lb 1.725 oz Body Mass Index (BMI) 42.1 Intake & Output: Intake and Output for Last 24 Hours 11/26/22 11/27/22 11/28/22 23:59 23:59 23:59 Intake Total 4544.17 / 4544.17 800 / 800 Output Total 1840 / 1840 5750 / 5750 100 / 100 Balance 2704.17 / 2704.17 -4950 / -4950 -100 / -100 Lab / Micro Data 11/28/22 04:30 11/28/22 04:30 Labs: Laboratory Results - last 24 hr 11/27/22 12:00: WBC 10.9, RBC 2.72 L, Hgb 8.0 L, Hct 22.6 L, MCV 83.1, MCH 29.4, MCHC 35.4 D, RDW Std Deviation 49.7 H, RDW Coeff of Tere 16.6 H, Plt Count 289, MPV 10.0, Immature Gran % (Auto) 2.000 H, Neut % (Auto) 79.7 H, Lymph % (Auto) 12.1 L, [place] % (Auto) 5.6, Eos % (Auto) 0.4, Baso % (Auto) 0.2, Absolute Neuts (auto) 8.7 H, Absolute Lymphs (auto) 1.32, Nucleated RBC % 0 11/28/22 04:30: WBC 12.0 H, RBC 2.72 L, Hgb 7.8 L, Hct 23.7 L, MCV 87.1, MCH 28.7, MCHC 32.9 D, RDW Std Deviation 53.8 H, RDW Coeff of Tere 17.2 H, Plt Count 280, MPV 10.1, Immature Gran % (Auto) 4.100 H, Neut % (Auto) 74.3 H, Lymph % (Auto) 15.8 L, [place] % (Auto) 4.7, Eos % (Auto) 0.7, Baso % (Auto) 0.4, Absolute Neuts (auto) 8.9 H, Absolute Lymphs (auto) 1.90, Nucleated RBC % 0.2, Sodium 139, Potassium 4.0, Chloride 107, Carbon Dioxide 22.0, Anion Gap 10, BUN 22 H, Creatinine 0.69, Estim Creat Clear Calc 90.78, Est GFR (MDRD) Af Amer 129, Est GFR (MDRD) Non-Af 106, BUN/Creatinine Ratio 31.8 H, Glucose 119 H, Calcium 8.4 L , Total Bilirubin 0.30, AST 27, ALT 25, Alkaline Phosphatase 219 H, Total Protein 6.5, Albumin 2.0 L, Globulin 4.5 H, Albumin/Globulin Ratio 0.4 L Radiography Diagnostic Testing: Radiology Impression Chest CTA 11/27/22 12:20 IMPRESSION: Normal CTA chest examination, without a demonstrated pulmonary embolism or arterial dissection. Findings she has a focal infiltrate in the posterior aspect of the superior segment of the right lower lobe. Bibasilar atelectasis. Electronically Signed: Harshal Puentes MD at 13:26 EDT , Physical Exam Const alert, oriented x3, no apparent distress, average body habitus, healthy appearing and well nourished HEENT normocephalic and moist oral mucous membranes Eyes PERRL Neck full ROM Resp normal respiratory effort, no retractions and no use of accessory muscles GI GI Narrative: Soft, nontender, bandage clean dry and intact Extremity normal to inspection and full ROM Neuro moves all extremities, no focal motor deficits and no sensory deficits noted Psych mental status grossly normal, affect normal, speech normal and activity/motor behavior normal Assessment & Plan (1) delivery delivered: PLAN: Postop day 3 status post primary section for nonreassuring heart tones. Breast-feeding. Pain well-controlled. Alberto with severe features based on severe range blood pressures currently stable on labetalol 300 mg twice daily and remains asymptomatic. Chest pain yesterday on 11/27/2022 CT angio negative for PE and EKG negative for [place]. Now chest pain resolved patient feeling well. Acute blood loss anemia secondary to surgery status post 2 units packed red blood cells on 11/27/2022. Will give Venofer prior to home-going today discussed with nursing. For Lovenox home-going discussed with nursing for Lovenox teaching. Okay to discharge home today and follow-up for blood pressure check in office
[2022-11-28 08:45] VITALS: BP 143/76; PULSE 92; RESP 16; TEMP 36.6; O2SAT 98
[2022-11-28] MEDS: Senna/Docusate Sodium 1 Tablet PO (10:03)
[2022-11-28] MEDS: Labetalol 200 MG Tablet 300 MG PO (10:04)
[2022-11-28] MEDS: Enoxaparin 40 MG/0.4 ML Syringe SC (10:05)
== END 2022-11-28 13:00 | disposition home or self-care (01) | DRG 787 ==
PROVIDERS: Obstetrics & Gynecology; Admitting Provider Student in an Organized Health Care Education/Training Program; PCP Internal Medicine; Visit Provider Student in an Organized Health Care Education/Training Program
DX: O76 Abnormality in fetal heart rate and rhythm complicating labor and delivery (principal); D62 Acute posthemorrhagic anemia; O11.4 Pre-existing hypertension with pre-eclampsia, complicating childbirth; O24.424 Gestational diabetes mellitus in childbirth, insulin controlled; O90.81 Anemia of the puerperium; Z3A.40 40 weeks gestation of pregnancy; Z37.0 Single live birth; O77.0 Labor and delivery complicated by meconium in amniotic fluid; O99.214 Obesity complicating childbirth; O99.893 Other specified diseases and conditions complicating puerperium; R07.9 Chest pain, unspecified; Z79.899 Other long term (current) drug therapy
CPT/HCPCS: 36415; 59025; 59050; 71275; 80053; 82570; 82962; 83615; 83735; 84156; 85025; 85027; 86780; 86850; 86900; 86901; 86920; 93005; 99221; J1756; J7120; P9016; Q9967; A4216; G0378; J2405

== ENCOUNTER 2022-12-02 09:20 | Outpatient (CLI) | payer OTHER, SELFPAY ==
[2022-12-02] VITALS (12 sets, daily range): BP systolic 105–153; BP diastolic 70–93; PULSE 96–110; TEMP 36.2; O2SAT 96–97; BMI 39.9
[2022-12-02] MEDS: 0.9% Saline Lock 10 ML Syringe IV (10:09)
[2022-12-02 10:19] LABS: Hemoglobin 8.4 g/dL (12.0-15.0); Mean Corp Hgb Conc 32.3 g/dL (32-36); Mean Corpuscular Hgb 29.4 pg (27.0-32.0); Mean Corpuscular Volume 90.9 fL (81-99); Mean Platelet Vol. 9.7 fl (6.2-12.0); Platelet Count 413 K/mm3 (150-450); RBC Distribution Width CV 18.4 % (11.6-14.6); RBC Distribution Width SD 57.4 fl (35.1-43.9); Red Blood Count 2.86 M/mm3 (4.2-5.4)
[2022-12-02 10:45] LABS: Uric Acid 6.3 mg/dL (2.6-6.0)
[2022-12-02 10:53] LABS: ALB/GLOB Ratio 0.5 RATIO (0.9-2.4); AST(SGOT) 43 U/L (15-37); Alanine Aminotransfer ALT/SGPT 49 U/L (13-56); Albumin, Serum 2.3 g/dL (3.2-5.0); Alkaline Phosphatase 292 U/L (45-117); Anion Gap 6 (5-15); BUN 20 mg/dL (7-18); BUN/Creat Ratio 31.6 RATIO (10-20); Calcium,Total 8.9 mg/dL (8.5-10.1); Chloride 108 mmol/L (98-107); Creatinine, Serum 0.63 mg/dL (0.55-1.02); EST Glomerular Filtration Rate 118 mL/min (>60); Est Glom Filt Rate - Afr Amer 143 mL/min (>60); Estimated Creatinine Clearance 99.43 ml/min; Globulin 4.5 g/dL (2.2-4.2); Glucose 94 mg/dL (74-106); LDH 435 U/L (84-246); Potassium 4.2 mmol/L (3.5-5.1); Protein, Total 6.8 g/dL (6.4-8.2); Sodium Level 139 mmol/L (136-145)
[2022-12-02] MEDS: Labetalol 200 MG Tablet 400 MG PO (11:09)
--- NOTE | 2022-12-02 16:56 | PCM.PN.OB ---
Subjective Subjective Patient sent from the office for elevated blood pressure. Patient asymptomatic. No headaches or vision changes, chest pain or shortness of breath, nausea or vomiting, right upper quadrant pain. Objective Data Objective Data Vital Signs: Vital Signs Pulse BP Pulse Ox 96 105/70 97 12/02/22 16:28 12/02/22 16:28 12/02/22 09:46 Weight: 96 kg Body Mass Index (BMI) 39.9 Lab / Micro Data Attestation: I reviewed the patient's lab results. 12/02/22 10:09 12/02/22 10:09 Labs: Laboratory Results - last 24 hr 12/02/22 10:09: WBC 13.0 H, RBC 2.86 L, Hgb 8.4 L, Hct 26.0 L, MCV 90.9, MCH 29.4, MCHC 32.3, RDW Std Deviation 57.4 H, RDW Coeff of Tere 18.4 H, Plt Count 413, MPV 9.7, Sodium 139, Potassium 4.2, Chloride 108 H, Carbon Dioxide 25.0, Anion Gap 6, BUN 20 H, Creatinine 0.63, Estim Creat Clear Calc 99.43, Est GFR (MDRD) Af Amer 143, Est GFR (MDRD) Non-Af 118, BUN/Creatinine Ratio 31.6 H, Glucose 94, Uric Acid 6.3 H, Calcium 8.9, Total Bilirubin 0.60, AST 43 H, ALT 49, Alkaline Phosphatase 292 H, Lactate Dehydrogenase 435 H, Total Protein 6.8, Albumin 2.3 L, Globulin 4.5 H, Albumin/Globulin Ratio 0.5 L Assessment & Plan (1) Chronic hypertension with superimposed pre-eclampsia: PLAN: Patient presenting for elevated blood pressure in office. Patient asymptomatic. Blood pressures controlled, slightly elevated. Will increase labetalol to 400 mg every 12 hours. Labs stable, will repeat next week at her postop visit. Precautions reviewed. Discharged home.
== END 2022-12-02 11:35 | disposition home or self-care (01) ==
LOC: WPOUT 09:24 → WP 09:24
PROVIDERS: Obstetrics & Gynecology; PCP Internal Medicine; Referring Provider Student in an Organized Health Care Education/Training Program; Visit Provider Student in an Organized Health Care Education/Training Program
DX: I10 Essential (primary) hypertension (principal)
CPT/HCPCS: 36415; 80053; 83615; 84550; 85027; 99221; A4216; G0378

== ENCOUNTER → 2022-12-09 | Outpatient (CLI) | payer OTHER, SELFPAY ==
[2022-12-09 17:02] LABS: Hematocrit 37.1 % (37-47); Hemoglobin 11.2 g/dL (12.0-15.0); Mean Corp Hgb Conc 30.2 g/dL (32-36); Mean Corpuscular Hgb 27.7 pg (27.0-32.0); Mean Corpuscular Volume 91.6 fL (81-99); Mean Platelet Vol. 8.9 fl (6.2-12.0); Platelet Count 652 K/mm3 (150-450); RBC Distribution Width CV 18.8 % (11.6-14.6); RBC Distribution Width SD 62.2 fl (35.1-43.9); Red Blood Count 4.05 M/mm3 (4.2-5.4)
[2022-12-09 17:42] LABS: ALB/GLOB Ratio 0.8 RATIO (0.9-2.4); AST(SGOT) 39 U/L (15-37); Alanine Aminotransfer ALT/SGPT 58 U/L (13-56); Albumin, Serum 3.2 g/dL (3.2-5.0); Alkaline Phosphatase 281 U/L (45-117); Anion Gap 8 (5-15); BUN 20 mg/dL (7-18); BUN/Creat Ratio 23.7 RATIO (10-20); Calcium,Total 9.2 mg/dL (8.5-10.1); Chloride 106 mmol/L (98-107); Creatinine, Serum 0.84 mg/dL (0.55-1.02); EST Glomerular Filtration Rate 85 mL/min (>60); Est Glom Filt Rate - Afr Amer 102 mL/min (>60); Globulin 4.2 g/dL (2.2-4.2); Glucose 99 mg/dL (74-106); Potassium 3.8 mmol/L (3.5-5.1); Protein, Total 7.4 g/dL (6.4-8.2); Sodium Level 138 mmol/L (136-145)
== END | disposition home or self-care (01) ==
LOC: WOBLAB 16:28
PROVIDERS: PCP Internal Medicine; Visit Provider Student in an Organized Health Care Education/Training Program
DX: O14.14 Severe pre-eclampsia complicating childbirth (principal); Z3A.00 Weeks of gestation of pregnancy not specified
CPT/HCPCS: 36415; 80053; 85027

== ENCOUNTER → 2022-12-17 | Outpatient (CLI) | payer OTHER, SELFPAY ==
[2022-12-17 16:53] LABS: Hemoglobin 13.3 g/dL (12.0-15.0); Mean Corp Hgb Conc 31.7 g/dL (32-36); Mean Corpuscular Hgb 27.9 pg (27.0-32.0); Mean Corpuscular Volume 88.2 fL (81-99); Mean Platelet Vol. 9.2 fl (6.2-12.0); Platelet Count 513 K/mm3 (150-450); RBC Distribution Width CV 15.9 % (11.6-14.6); RBC Distribution Width SD 51.6 fl (35.1-43.9); Red Blood Count 4.76 M/mm3 (4.2-5.4); White Blood Count 7.6 K/mm3 (4.4-11.0)
[2022-12-17 17:17] LABS: ALB/GLOB Ratio 0.9 RATIO (0.9-2.4); AST(SGOT) 25 U/L (15-37); Alanine Aminotransfer ALT/SGPT 48 U/L (13-56); Albumin, Serum 3.6 g/dL (3.2-5.0); Alkaline Phosphatase 193 U/L (45-117); Anion Gap 10 (5-15); BUN 16 mg/dL (7-18); BUN/Creat Ratio 22.2 RATIO (10-20); Calcium,Total 9.1 mg/dL (8.5-10.1); Chloride 106 mmol/L (98-107); Creatinine, Serum 0.72 mg/dL (0.55-1.02); EST Glomerular Filtration Rate 102 mL/min (>60); Est Glom Filt Rate - Afr Amer 123 mL/min (>60); Glucose 95 mg/dL (74-106); Potassium 3.8 mmol/L (3.5-5.1); Protein, Total 7.6 g/dL (6.4-8.2); Sodium Level 139 mmol/L (136-145)
== END | disposition home or self-care (01) ==
LOC: WOBLAB 16:13
PROVIDERS: PCP Internal Medicine; Visit Provider Student in an Organized Health Care Education/Training Program
DX: O76 Abnormality in fetal heart rate and rhythm complicating labor and delivery (principal); Z48.816 Encounter for surgical aftercare following surgery on the genitourinary system; Z3A.00 Weeks of gestation of pregnancy not specified
CPT/HCPCS: 36415; 80053; 85027

== ENCOUNTER 2023-12-27 03:13 | Emergency (ER) | payer OTHER, SELFPAY ==
[2023-12-27] VITALS (7 sets, daily range): BP systolic 97–150; BP diastolic 45–87; PULSE 70–95; RESP 16–18; TEMP 35.9–36.6; O2SAT 97–99; BMI 39.0
--- NOTE | 2023-12-27 03:30 | CT_ITS ---
INDICATION: Pain EXAMINATION: CT ABDOMEN AND PELVIS WITHOUT CONTRAST - CT Abdomen And Pelvis W/O Contrast Injection TECHNIQUE: Helically acquired images were obtained of the abdomen and pelvis without oral or IV contrast. A radiation dose optimization technique was used for this scan. IV Contrast dosage and agent: None. Oral contrast: None. RADIATION DOSAGE (If Supplied By Facility): CTDIvol = ( 16.53 ) mGy, DLP = ( 859.19 ) mGycm COMPARISON: No relevant prior comparison study available FINDINGS: LOWER CHEST: Lung bases are clear. No cardiomegaly or pericardial effusion. LIVER: The liver is normal in size, shape, and attenuation. No focal mass. GALLBLADDER AND BILIARY TREE: The gallbladder is normally distended. No gallstones. No gallbladder wall thickening or edema. No intra- or extrahepatic biliary ductal dilation. PANCREAS: No focal cystic or solid mass. SPLEEN: Normal size without focal cystic or solid mass. ADRENAL GLANDS: No nodules. KIDNEYS AND URETERS: Normal renal size and position. No hydronephrosis or nephrolithiasis. PERITONEUM: Small volume of free fluid throughout the abdomen and pelvis measuring higher than simple, likely blood products. The majority is seen in the pelvis surrounding the uterus and ovaries. No free air. BOWEL: The stomach is unremarkable. Normal caliber small bowel. No obstruction. No colonic wall thickening or inflammatory changes. No evidence of acute appendicitis. LYMPH NODES: No enlarged mesenteric or retroperitoneal lymph nodes. VESSELS: Aorta is non-dilated. Circumaortic left renal vein. URINARY BLADDER: Unremarkable. REPRODUCTIVE ORGANS: Anteverted uterus. No definite adnexal mass. Blood products in the pelvis. ABDOMINAL WALL: No discrete abdominal or pelvic wall hernia. BONES: No acute or suspicious osseous abnormality. CT/Abdomen/Pelvis without Cont IMPRESSION: Small volume of blood products in the abdomen and pelvis, greatest surrounding the pelvic viscera. Hemorrhagic cyst is a consideration. Consider pelvic ultrasound evaluation. Electronically Signed: Nihtin Clement MD at 5:31 EDT ,
--- NOTE | 2023-12-27 03:31 | ED.VIS.GI ---
HPI HPI - GI History of Present Illness Chief Complaint: Abd Pain Detail of Chief Complaint: Abdominal pain Informant: patient Narrative Narrative: Patient presents with abdominal pain and rectal pain that started yesterday around 4 PM. Patient states that she has had several bowel movements and has not had any blood in the stool. She denies dysuria. She denies fevers. Describes some lower abdomen pain. She has not had pain like this before. She is 2 weeks late on her menstrual period but this is not unusual for her as she has a history of PCOS. Prior abdominal surgeries include C-sections. [facility] Medical History (Updated 12/27/23 @ 06:[address] Nadine Richter, DO) Chronic hypertension Gestational diabetes Home Medications ?Medication ?Instructions ?Recorded ?Last Taken ?Type labetalol 300 mg tablet 300 mg PO BID Blood Pressure 11/25/22 12/01/22 22:00 History 300 mg [id number] 1 mg tab PO DAILY 12/27/23 Unknown History tablet Allergy/AdvReac Type Severity Reaction Status Date / Time No Known Allergies Allergy Verified 12/27/23 03:18 Family History (Updated 11/25/22 @ 14:[address] Ailyn Grigsby, DO) Other Gestational diabetes Social History Smoking Status: Never smoker ROS ROS ED Review of Systems ROS Unobtainable: other Constitutional Constitutional ED: Reports lethargy; Denies chills, fever(s), sweats or weight loss Eyes Eyes: Denies blurry vision, change in vision or diplopia ENT ENT ED: Denies rhinorrhea or sore throat Cardiovascular Cardiovascular: Denies chest pain, orthopnea or racing heartbeat Respiratory/Chest Respiratory/Chest: Denies cough, dyspnea, dyspnea on exertion, orthopnea or sputum Gastrointestinal Gastrointestinal: Reports abdominal pain and other Details: Rectal pain ; Denies diarrhea, nausea or vomiting Genitourinary Genitourinary ED: Denies dysuria, hematuria or urinary frequency Musculoskeletal Musculoskeletal: Denies arthralgias, back pain, myalgias or neck pain Integumentary Denies abscess, Abrasions or rash Neurologic Neurologic: Denies headache(s) or weakness Psychiatric Psychiatric: Denies anxiety, depression or suicidal thoughts Endocrine Endocrinology: Denies polydipsia, polyphagia or polyuria Hematologic/Lymphatic Hematologic/Lymphatic: Denies easy bleeding, easy bruising or lymphadenopathy Allergic/Immunologic Allergic/Immunologic ED: Denies mouth swelling, tongue swelling or urticaria EXAM Physical Exam Const Vital Signs: 12/27/23 03:13 12/27/23 05:13 Temperature 96.7 F L Temperature Source Temporal Pulse Rate 95 88 Respiratory Rate 18 16 Blood Pressure 150/86 H 125/72 H Blood Pressure Mean 107 89 Pulse Ox 97 98 Oxygen Delivery Method Room Air Room Air Positive well nourished and well developed General Appearance ED: well developed and NAD HEENT Reports TM's clear and moist mucous membranes normocephalic and atraumatic; Negative for trauma or tenderness Tympanic Membrane ED: Yes TM's clear Eyes PERRL and EOMs intact bilaterally General Eye ED: Negative for pale conjunctiva or scleral icterus Neck no lymphadenopathy, supple and no JVD General: Negative for tenderness Chest Wall inspection of chest normal and palpation of chest normal Chest: Negative for tenderness Resp normal respiratory effort and clear to auscultation bilaterally Effort and Inspection: Negative for respiratory distress or pain with movement Auscultation: Negative for rhonchi, wheezes or diminished lung sounds Cardio regular rate, regular rhythm, S1 normal heart sound, S2 normal heart sound and no murmurs Peripheral Pulses: pulses 2+ throughout GI normal to inspection, nondistended, normoactive bowel sounds, soft to palpation, non-distended and no masses GI Narrative: Mild diffuse tenderness. There is no rebound, rigidity, or peritoneal signs. No mass palpated. Back/Spine no CVA tenderness and no thoracic nor lumbar tenderness Extremity normal to inspection General Extremety ED: Negative for edema General Extremity: Negative for edema Neuro oriented x3, CN's II-XII intact bilaterally, no sensory deficits noted and gait normal Sensorium / Orientation: awake, alert, oriented to person, oriented to place and oriented to time Motor Exam: strength 5/5 throughout and strength abnormal Psych mental status grossly normal Skin no rashes or lesions noted and no wounds MDM MDM MDM Narrative Medical decision making narrative: Patient presents with lower abdomen pain and rectal pain. 2 weeks late on her menstrual period which is not unusual as she has history of PCOS. In the differential would be UTI versus diverticulitis versus colitis or other acute intra-abdominal process. IV line established. CBC with differential obtained showed white count 11.9 with hemoglobin 11.7 and platelet count of 286. Chemistries unremarkable. LFTs were normal. Lactate normal at 1.0. Serum was negative. Urinalysis unremarkable. CT scan of the abdomen pelvis obtained showed blood product within the pelvis and they recommended obtaining an ultrasound to evaluate further as there is suspicion for possible hemorrhagic ovarian cysts. Pelvic ultrasound was ordered and results will be pending. Care of patient turned over to morning physician awaiting ultrasound results and discussion with SILVER BUFFER. Lab Data Attestation: I reviewed the patient's lab results. Labs: Laboratory Results - last 24 hr 12/27/23 12/27/23 03:28 04:35 WBC 11.9 H RBC 4.49 Hgb 11.7 L Hct 36.9 L MCV 82.2 MCH 26.1 L MCHC 31.7 L RDW Std Deviation 42.5 RDW Coeff of Tere 14.2 Plt Count 286 MPV 9.9 Immature Gran % (Auto) 0.500 Neut % (Auto) 73.8 H Lymph % (Auto) 20.0 [place] % (Auto) 4.5 Eos % (Auto) 0.8 Baso % (Auto) 0.4 Absolute Neuts (auto) 8.8 H Absolute Lymphs (auto) 2.38 Nucleated RBC % 0 Sodium 139 Potassium 3.8 Chloride 108 H Carbon Dioxide 24.0 Anion Gap 7 BUN 29 H Creatinine 0.91 Estim Creat Clear Calc 94.41 Est GFR (MDRD) Af Amer 93 Est GFR (MDRD) Non-Af 77 BUN/Creatinine Ratio 31.9 H Glucose 121 H Lactic Acid 1.0 Calcium 9.2 Total Bilirubin 0.40 AST 11 L ALT 23 Alkaline Phosphatase 95 Total Protein 7.2 Albumin 3.7 Globulin 3.5 Albumin/Globulin Ratio 1.1 Lipase 61 Serum , Qual NEGATIVE Urine Color Straw Urine Clarity Clear Urine pH 6.0 Ur Specific [place] 1.010 Urine Protein Negative Urine Glucose (UA) Normal Urine Ketones Negative Urine Occult Blood Negative Urine Nitrite Negative Urine Bilirubin Negative Urine Urobilinogen Normal Ur Leukocyte Esterase 25 H Urine RBC 0 SEEN Urine WBC 0-5 SEEN Ur Squamous Epith Cells 5-10 SEEN Urine Bacteria 1+ Urine Mucus 0 SEEN Radiography Diagnostic Testing: Clinical Impression(s) from Imaging Studies Abdomen/Pelvis CT 12/27/23 03:30 IMPRESSION: Small volume of blood products in the abdomen and pelvis, greatest surrounding the pelvic viscera. Hemorrhagic cyst is a consideration. Consider pelvic ultrasound evaluation. Electronically Signed: Nithin Clement MD at 5:31 EDT , Discharge Plan Triage Chief Complaint: Abd Pain ED Provider: Nadine Richter Dx/Rx/DC Orders Clinical Impression: Abdominal pain Prescriptions: No Action labetalol 300 mg tablet 300 mg PO BID Patient Comments: TAKE 1 TABLET BY MOUTH TWICE A DAY [id number] 1 mg tablet PO DAILY Primary Care Provider: Lauren Latham Referrals: Lauren Latham MD [Primary Care Provider] - Print Language: Lithuanian
[2023-12-27 03:48] LABS: Absolute Lymphocyte Count 2.38 X10^3/uL (0.83-4.51); Absolute Neutrophil Count 8.8 X10^3/uL (2.0-7.7); Basophil# 0.05 X10^3/uL; Basophil% 0.4 % (0-1); Eosinophils% 0.8 % (0-5); Hematocrit 36.9 % (37-47); Hemoglobin 11.7 g/dL (12.0-15.0); Lymphocyte # 2.38 X10^3/ul (0.83-4.51); Mean Corp Hgb Conc 31.7 g/dL (32-36); Mean Corpuscular Hgb 26.1 pg (27.0-32.0); Mean Corpuscular Volume 82.2 fL (81-99); Mean Platelet Vol. 9.9 fl (6.2-12.0); Monocyte# 0.54 X10^3/uL; Monocyte% 4.5 % (0-10); NRBC Flagged by Analyzer 0 % (0-5); Neutrophil # 8.76 X10^3/uL (2.7-7.7); Neutrophil % 73.8 % (47-70); Platelet Count 286 K/mm3 (150-450); RBC Distribution Width CV 14.2 % (11.6-14.6); RBC Distribution Width SD 42.5 fl (35.1-43.9); Red Blood Count 4.49 M/mm3 (4.2-5.4); White Blood Count 11.9 K/mm3 (4.4-11.0)
[2023-12-27] MEDS: 0.9% Normal Saline (1000mL) 1,000 ML 125 ML IV (03:48)
[2023-12-27 04:02] LABS: Internal QC Validated? YES +Cl - CLEAR BKGD; Pregnancy, Serum, hCG Quali. NEGATIVE Negative; Record Kit Lot#, Serum Preg. 772476
[2023-12-27 04:07] LABS: ALB/GLOB Ratio 1.1 RATIO (0.9-2.4); AST(SGOT) 11 U/L (15-37); Alanine Aminotransfer ALT/SGPT 23 U/L (13-56); Albumin, Serum 3.7 g/dL (3.2-5.0); Alkaline Phosphatase 95 U/L (45-117); Anion Gap 7 (5-15); BUN 29 mg/dL (7-18); BUN/Creat Ratio 31.9 RATIO (10-20); Calcium,Total 9.2 mg/dL (8.5-10.1); Chloride 108 mmol/L (98-107); Creatinine, Serum 0.91 mg/dL (0.55-1.02); EST Glomerular Filtration Rate 77 mL/min (>60); Est Glom Filt Rate - Afr Amer 93 mL/min (>60); Estimated Creatinine Clearance 94.41 ml/min; Globulin 3.5 g/dL (2.2-4.2); Glucose 121 mg/dL (74-106); Lipase 61 U/L (13-75); Potassium 3.8 mmol/L (3.5-5.1); Protein, Total 7.2 g/dL (6.4-8.2); Sodium Level 139 mmol/L (136-145)
[2023-12-27 04:43] LABS: Mucous, Urine 0 SEEN /hpf (<or=2+); Red Blood Cells-Urine 0 SEEN /hpf (0-5)
[2023-12-27 04:44] LABS: Color, Urine Straw (Yellow); Glucose, Dipstick Normal (Normal); Ketone-Dipstick Negative (Negative); Leukocyte Esterase-Dipstick 25 /ul (Negative); Nitrite-Dipstick Negative (Negative); Occult Blood-Urine Negative /ul (Negative); Protein-Dipstick Negative (Negative); Urine Bilirubin Dipstick Negative (Negative); Urine Clarity Clear (Clear); Urine Urobilinogen Normal (Normal)
[2023-12-27 05:17] LABS: Bacteria 1+ /hpf (None Seen); Squamous Epithelial Cells - UA 5-10 SEEN /hpf (5-10); White Blood Cells 0-5 SEEN /hpf (0-5)
--- NOTE | 2023-12-27 05:36 | US_ITS ---
HISTORY: pelvic pain, blood in pelvis on CT. TECHNIQUE: Transvaginal pelvic ultrasound was performed with jasmine scale , spectral Doppler, and color Doppler evaluation. 94 images. COMPARISON: CT same day. FINDINGS: UTERUS: 8.8 x 3.7 x 4.7 cm. Anteverted. ENDOMETRIAL THICKNESS: 12 mm. RIGHT OVARY: 2.3 x 2.9 x 3.7 cm with small follicles. Doppler flow noted. No adnexal masses. LEFT OVARY: 4.7 x 6.3 x5.3 cm. Vascular flow demonstrated. 2.8 cm cyst with a hemorrhagic component. FREE FLUID: Moderate echogenic fluid in the pelvis. US/Transvaginal Non- IMPRESSION: 2.8 cm hemorrhagic left ovarian cyst with moderate hemorrhagic free fluid in the pelvis. Vascular flow demonstrated to the left ovary. Electronically Signed: Kelly Vazquez MD at 9:12 EDT ,
[2023-12-27] MEDS: Morphine 4 MG/ML Syringe IV (10:22)
[2023-12-27 10:42] LABS: Absolute Lymphocyte Count 2.14 X10^3/uL (0.83-4.51); Absolute Neutrophil Count 8.1 X10^3/uL (2.0-7.7); Basophil# 0.03 X10^3/uL; Basophil% 0.3 % (0-1); Eosinophil# 0.08 X10^3/uL; Eosinophils% 0.7 % (0-5); Hematocrit 33.9 % (37-47); Hemoglobin 10.9 g/dL (12.0-15.0); Lymphocyte # 2.14 X10^3/ul (0.83-4.51); Lymphocyte % 19.7 % (19-41); Mean Corp Hgb Conc 32.2 g/dL (32-36); Mean Corpuscular Hgb 26.7 pg (27.0-32.0); Mean Corpuscular Volume 82.9 fL (81-99); Mean Platelet Vol. 9.7 fl (6.2-12.0); Monocyte# 0.54 X10^3/uL; NRBC Flagged by Analyzer 0 % (0-5); Neutrophil # 8.05 X10^3/uL (2.7-7.7); Neutrophil % 73.8 % (47-70); Platelet Count 265 K/mm3 (150-450); RBC Distribution Width CV 14.3 % (11.6-14.6); RBC Distribution Width SD 43.4 fl (35.1-43.9); Red Blood Count 4.09 M/mm3 (4.2-5.4); White Blood Count 10.9 K/mm3 (4.4-11.0)
[2023-12-27] MEDS: 0.9% Normal Saline (1000mL) 1,000 ML 1000 ML IV (11:16)
== END 2023-12-27 12:54 | disposition home or self-care (01) ==
PROVIDERS: Emergency Medicine; Emergency Provider Emergency Medicine; PCP Internal Medicine; Visit Provider Emergency Medicine
DX: R10.30 Lower abdominal pain, unspecified (principal); I10 Essential (primary) hypertension; Z79.899 Other long term (current) drug therapy
CPT/HCPCS: 74176; 76830; 80053; 81001; 82274; 83605; 83690; 84703; 85025; 96361; 96374; 99284; J7030; A4216